=== PATIENT | female | born 1995 | race Caucasian/White ===

== ENCOUNTER 2017-07-27 01:49 | Inpatient (IN) | payer MEDICAID ==
[~2017-07-27] VITALS: Ht 180.3 cm; Wt 50.0 kg
[2017-07-27] MEDS ORDERED: MIRT30 PO (02:03)
[2017-07-27] MEDS ORDERED: ZOLPIDEM TARTRATE 10 MG TABLET PO PRN (04:15)
[2017-07-27] MEDS ORDERED: LORazepam 2 MG TABLET PO PRN (04:15)
[2017-07-27] MEDS ORDERED: HALOPERIDOL 5 MG TABLET PO PRN (04:15)
[2017-07-27 06:09] VITALS: BP 128/80
[2017-07-27] MEDS ORDERED: NICOTINE 21 MG/24 HOUR PATCH TD ONE (07:30)
[2017-07-27 09:44] VITALS: BP 114/89
[2017-07-27 17:23] VITALS: BP 133/81
[2017-07-27] MEDS: MIRTAZAPINE 30 MG TABLET PO SCH (20:08)
[2017-07-28 13:49] VITALS: BP 129/76
[2017-07-28] MEDS: NICOTINE 21 MG/24 HOUR PATCH TD SCH (14:41)
[2017-07-28 16:00] VITALS: BP 117/80
[2017-07-28] MEDS: MIRTAZAPINE 30 MG TABLET PO SCH (20:11)
[2017-07-29 08:36] VITALS: BP 110/63
[2017-07-29 08:49] LABS: BASOPHILS % (AUTO) 0.9 % (0.0-2.0); EOSINOPHILS % (AUTO) 6.5 % (1.0-6.0); HEMATOCRIT 39.9 % (36-46); HEMOGLOBIN 13.8 g/dL (12.0-16.0); LYMPHOCYTES # (AUTO) 2.6 K/uL (1.0-4.8); LYMPHOCYTES % (AUTO) 43.8 % (22.0-44.0); MEAN CORPUSCULAR HEMOGLOBIN 28.8 pg (26.0-34.0); MEAN CORPUSCULAR HGB CONC 34.5 G/dL (31.0-37.0); MEAN CORPUSCULAR VOLUME 84 fL (80-100); MONOCYTES # (AUTO) 0.6 K/uL (0.1-1.0); NEUTROPHILS # (AUTO) 2.3 K/uL (1.8-7.7); NEUTROPHILS % (AUTO) 38.8 % (40.0-70.0); PLATELET COUNT (AUTO) 306 K/uL (150-450); RED BLOOD CELL COUNT(AUTO) 4.78 MIL/uL (4.00-5.20); RED CELL DISTRIBUTION WIDTH 14.2 % (11.5-14.5)
[2017-07-29] MEDS: NICOTINE 21 MG/24 HOUR PATCH TD SCH (08:50)
[2017-07-29 09:39] LABS: ALANINE AMINOTRANSFERASE 25 U/L (12-78); ALBUMIN 3.7 g/dL (3.4-5.0); ALKALINE PHOSPHATASE 60 U/L (46-116); ANION GAP 9 mmol/L (8-16); ASPARTATE AMINOTRANSFERASE 21 U/L (15-37); BILIRUBIN,TOTAL 0.2 mg/dL (0.1-1.0); CALCIUM, TOTAL 8.6 mg/dL (8.8-10.5); CARBON DIOXIDE 28 mmol/L (22-29); CHLORIDE 106 mmol/L (98-107); CHOL/HDL RATIO 3.7 (3.9-5.7); CHOLESTEROL 173 mg/dL (131-200); CREATININE 0.78 mg/dL (0.60-1.30); FREE T4 (FREE THYROXINE) 0.89 ng/dL (0.76-1.46); GLOMERULAR FILTR. RATE CALC > 60 mL/min (>60); GLUCOSE,RANDOM 89 mg/dL (70-110); HDL CHOLESTEROL 47 mg/dL (40-60); LDL CHOL (CALC.) 103 mg/dL (0-130); POTASSIUM 4.1 mmol/L (3.5-5.1); SODIUM SERUM 143 mmol/L (136-145); THYROID STIMULATING HORMONE 1.81 uIU/mL (0.36-3.74); TOTAL PROTEIN, SERUM 7.1 g/dL (6.4-8.2); TRIGLYCERIDES 115 mg/dL (15-150); UREA NITROGEN, BLOOD 10 mg/dL (7-18)
[2017-07-29] MEDS ORDERED: MIRT30 PO (09:40)
[2017-07-29 10:06] LABS: AMPHET/METH SCREEN,URINE POSITIVE (NEGATIVE); BARBITURATE SCREEN, URINE NEGATIVE (NEGATIVE); BENZODIAZEPINES SCREEN,URINE NEGATIVE (NEGATIVE); CANNABINOID SCREEN,URINE POSITIVE (NEGATIVE); COCAINE SCREEN,URINE NEGATIVE (NEGATIVE); METHADONE SCREEN, URINE NEGATIVE (NEGATIVE); OPIATE SCREEN,URINE NEGATIVE (NEGATIVE)
[2017-07-29 10:08] LABS: PHENCYCLIDINE SCREEN,URINE NEGATIVE (NEGATIVE)
[2017-07-29 10:46] LABS: APPEARANCE,URINE TURBID (CLEAR); BILIRUBIN,URINE NEGATIVE (NEGATIVE); GLUCOSE, URINE (UA) NEGATIVE (NEGATIVE); KETONES,URINE TRACE mg/dL (NEGATIVE); LEUKOCYTE ESTERASE ,URINE TRACE (NEGATIVE); NITRATE,URINE NEGATIVE (NEGATIVE); OCCULT BLOOD,URINE NEGATIVE (NEGATIVE); PROTEIN,URINE TRACE (NEGATIVE); UROBILINOGEN,URINE 0.2 mg/dL (<=1.0)
[2017-07-29 11:23] LABS: BACTERIA,URINE None Seen /HPF (None Seen); RBC,URINE None Seen /HPF (0-2); WBC,URINE 0-2 /HPF (0-5)
[2017-07-29 11:24] LABS: AMORPHOUS SEDIMENT,UR Many /LPF (None Seen)
== END 2017-07-29 13:25 | disposition home or self-care (01) | DRG 751 ==
LOC: EMS 01:50 → B3A 04:23
DX: F33.2 Major depressive disorder, recurrent severe without psychotic features (principal); R45.851 Suicidal ideations; F41.9 Anxiety disorder, unspecified; F10.10 Alcohol abuse, uncomplicated; F12.90 Cannabis use, unspecified, uncomplicated; F17.210 Nicotine dependence, cigarettes, uncomplicated; S00.83XA Contusion of other part of head, initial encounter; R03.0 Elevated blood-pressure reading, without diagnosis of hypertension; Z79.899 Other long term (current) drug therapy; Z91.5 Personal history of self-harm
CPT/HCPCS: 84439; 84443; 99285; G0480